=== PATIENT | female | born 1990 | race Hispanic/Latino ===

== ENCOUNTER 2020-01-10 12:54 | Emergency (ER) | payer MEDICAID, OTHER | END 2020-01-10 13:34 | disposition home or self-care (01) | LOC: EDH 12:54 | DX: R05 Cough (principal); Z98.890 Other specified postprocedural states | CPT/HCPCS: 99281 ==

== ENCOUNTER 2022-02-17 12:01 | Inpatient (IN) | payer MEDICAID, OTHER ==
[~2022-02-17] VITALS: Ht 157.5 cm; Wt 101.7 kg
[2022-02-17] MEDS ORDERED: 0.9%NACL 1000ML 1,000 ML IV SCH ×2 (12:30→15:00)
[2022-02-17] MEDS ORDERED: ONDANSETRON 4MG INJ IVP ONE (12:30)
[2022-02-17] MEDS ORDERED: KETOROLAC 30MG VIAL (30MG/ML) IVP ONE (12:30)
[2022-02-17 12:39] LABS: BASOPHILS % (AUTO) 0.2 % (0.0-5.0); EOSINOPHILS % (AUTO) 0.3 % (0.0-8.0); HEMATOCRIT 39.1 % (36-48); LYMPHOCYTES % (AUTO) 10.7 % (21.0-51.0); MEAN CORPUSCULAR HEMOGLOBIN 27.8 pg (27.0-33.0); MEAN CORPUSCULAR VOLUME 84.3 fL (79-99); MONOCYTES % (AUTO) 5.3 % (3.0-13.0); PLATELET COUNT (AUTO) 274 K/uL (130-400); RED BLOOD CELL COUNT(AUTO) 4.64 MIL/uL (4.00-5.50); RED CELL DISTRIBUTION WIDTH 12.7 % (11.0-15.5); WHITE BLOOD COUNT (AUTO) 12.7 K/uL (4.8-10.8)
[2022-02-17 12:44] LABS: APPEARANCE,URINE Clear (CLEAR); BILIRUBIN,URINE Negative (NEGATIVE); COLOR,URINE Yellow (YELLOW); GLUCOSE, URINE (UA) Negative (NEGATIVE); KETONES,URINE Trace mg/dL (NEGATIVE); LEUKOCYTE ESTERASE ,URINE Small (NEGATIVE); NITRATE,URINE Negative (NEGATIVE); OCCULT BLOOD,URINE Moderate (NEGATIVE); PROTEIN,URINE POS 1+ mg/dL (NEGATIVE)
[2022-02-17 12:46] LABS: HCG,QUAL RESULT NEGATIVE (NEGATIVE)
[2022-02-17 12:51] LABS: RBC,URINE 26-50 /HPF (0-1)
[2022-02-17 12:52] LABS: BACTERIA,URINE None Seen /HPF (None Seen); MUCUS,URINE Few LPF (None Seen)
[2022-02-17 12:53] LABS: RENAL EPITHELIAL CELLS,URINE Rare /HPF (None Seen)
[2022-02-17 12:57] LABS: POTASSIUM 3.9 mmol/L (3.5-5.1)
[2022-02-17 13:02] LABS: ALBUMIN 3.7 g/dL (3.5-5.0); BILIRUBIN,TOTAL 0.4 mg/dL (0.2-1.0); TOTAL PROTEIN, SERUM 7.4 g/dL (6.0-8.3)
[2022-02-17] MEDS ORDERED: MORPHINE 4 MG SYG ONE (13:29)
[2022-02-17] MEDS ORDERED: MORPHINE 4 MG SYG IVP ONE (13:30)
[2022-02-17] MEDS ORDERED: TAMSULOSIN HCL 0.4 MG CAP.ER.24H PO SCH (15:00)
[2022-02-17] MEDS ORDERED: CEFTRIAXONE 1G VIAL IVP ONE (15:00)
[2022-02-17] MEDS ORDERED: HYDROMORPHONE 1 MG INJ IVP PRN (16:30)
[2022-02-17] MEDS: CEFTRIAXONE 1G VIAL IV SCH (16:30)
[2022-02-17] MEDS ORDERED: LACTULOSE 20 GM/30 ML UDCUP PO PRN (16:30)
[2022-02-17] MEDS ORDERED: ACETAMINOPHEN 325 MG TAB PO PRN ×2 (16:30)
[2022-02-17] MEDS: 0.9%NACL 1000ML 1,000 ML IV SCH ×2 (17:03→23:53)
[2022-02-17] MEDS: HYDROMORPHONE 0.5 MG SYG (0.5MG/0.5ML) IVP PRN (17:26)
[2022-02-17] MEDS: FAMOTIDINE 20MG VIAL IV SCH (20:06)
[2022-02-17] MEDS: BISACODYL 5 MG TABLET.DR PO SCH (20:07)
[2022-02-17] MEDS ORDERED: FAMOTIDINE 20MG VIAL IV SCH (21:00)
[2022-02-18 00:05] VITALS: BP 101/62
[2022-02-18 04:00] VITALS: BP 112/76
[2022-02-18 08:00] VITALS: BP 91/52
[2022-02-18] MEDS ORDERED: ENOXAPARIN SODIUM 40 MG/0.4 ML SYRINGE SQ SCH (09:00)
[2022-02-18] MEDS: FAMOTIDINE 20MG VIAL IV SCH (09:08)
[2022-02-18] MEDS: BISACODYL 5 MG TABLET.DR PO SCH (09:08)
[2022-02-18] MEDS: HYDROMORPHONE 0.5 MG SYG (0.5MG/0.5ML) IVP PRN (11:00)
[2022-02-18 12:00] VITALS: BP 108/56
[2022-02-18] MEDS ORDERED: KETOROLAC 30MG VIAL (30MG/ML) IVP SCH (12:00)
[2022-02-18] MEDS: 0.9%NACL 1000ML 1,000 ML IV SCH (12:47)
[2022-02-18] MEDS ORDERED: KETO10 PO (15:13)
[2022-02-18] MEDS ORDERED: TAMS-1 PO (15:13)
[2022-02-18] MEDS ORDERED: SULF1TAB42 PO (15:13)
[2022-02-18] MEDS: CEFTRIAXONE 1G VIAL IV SCH (16:30)
[2022-02-19] MEDS ORDERED: TAMSULOSIN HCL 0.4 MG CAP.ER.24H PO SCH (09:00)
== END 2022-02-18 20:37 | disposition home or self-care (01) | DRG 690 ==
LOC: EDH 12:01 → EDHIP 16:16 → 3CH 02-18 00:02
PROVIDERS: ADMIT Internal Medicine; ATTEND Internal Medicine
DX: N13.6 Pyonephrosis (principal); Z68.41 Body mass index [BMI] 40.0-44.9, adult; Z20.822 Contact with and (suspected) exposure to COVID-19; Z87.891 Personal history of nicotine dependence; E66.01 Morbid (severe) obesity due to excess calories
CPT/HCPCS: 36415; 74176; 80053; 81001; 81025; 83605; 85025; 87635; G0378; J0696; J1170; J1650; J1885; J2270; J2405; J3490; J7030

== ENCOUNTER 2024-04-28 08:40 | Emergency (ER) | payer BC, OTHER ==
[~2024-04-28] VITALS: Ht 157.5 cm; Wt 104.3 kg
[~2024-04-28 08:40] MED LIST: KETO10 PO; SULF1TAB42 PO; TAMS-1 PO
[2024-04-28] MEDS: ONDANSETRON 4MG INJ IVP ONE (08:56)
[2024-04-28] MEDS: FAMOTIDINE 20MG VIAL IV ONE (08:56)
[2024-04-28] MEDS: 0.9%NACL 1000ML 1,000 ML IV ONE (08:56)
[2024-04-28 09:08] LABS: BASOPHILS # (AUTO) 0.02 K/uL (0.00-0.20); BASOPHILS % (AUTO) 0.4 % (0.0-5.0); HEMATOCRIT 32.1 % (36-48); IMMATURE GRANULOCYTE ABSOLUTE 0.04 K/uL (0-1); LYMPHOCYTES # (AUTO) 1.5 K/uL (1.0-4.8); LYMPHOCYTES % (AUTO) 27.5 % (21.0-51.0); MEAN CORPUSCULAR HEMOGLOBIN 28.5 pg (27.0-33.0); MEAN CORPUSCULAR HGB CONC 35.8 g/dL (32.0-36.0); MEAN CORPUSCULAR VOLUME 79.5 fL (79-99); MONOCYTES # (AUTO) 0.4 K/uL (0.1-1.0); MONOCYTES % (AUTO) 6.7 % (3.0-13.0); NEUTROPHILS # (AUTO) 3.6 K/uL (1.8-7.7); NEUTROPHILS % (AUTO) 64.7 % (40.0-77.0); PLATELET COUNT (AUTO) 106 K/uL (130-400); RED BLOOD CELL COUNT(AUTO) 4.04 MIL/uL (4.00-5.50); WHITE BLOOD COUNT (AUTO) 5.5 K/uL (4.8-10.8)
[2024-04-28 09:16] LABS: ALBUMIN 2.9 g/dL (3.5-5.0); CREATININE 0.9 mg/dL (0.5-1.0)
[2024-04-28 09:21] LABS: BILIRUBIN,TOTAL 0.8 mg/dL (0.2-1.0); TOTAL PROTEIN, SERUM 6.9 g/dL (6.0-8.3)
[2024-04-28 09:25] LABS: POTASSIUM 2.6 mmol/L (3.5-5.1)
[2024-04-28 09:27] LABS: APPEARANCE,URINE CLOUDY (CLEAR); BILIRUBIN,URINE NEGATIVE (NEGATIVE); COLOR,URINE YELLOW (YELLOW); GLUCOSE, URINE (UA) NEGATIVE (NEGATIVE); KETONES,URINE 10 mg/dL (NEGATIVE); LEUKOCYTE ESTERASE ,URINE 25 Leu/uL (NEGATIVE); NITRATE,URINE NEGATIVE (NEGATIVE); PROTEIN,URINE 30 mg/dL (NEGATIVE); UROBILINOGEN,URINE 0.2 mg/dL (0.2-1.0)
[2024-04-28 09:30] LABS: ADD UA MICROSCOPIC YES
[2024-04-28 09:32] LABS: BACTERIA,URINE FEW /HPF (None Seen); MUCUS,URINE RARE LPF (None Seen); SQUAMOUS EPITHELIAL CELL,UR FEW /HPF (0-2)
[2024-04-28] MEDS: POTASSIUM BICARB/CIT AC 25 MEQ TABLET.EFF PO ONE ×2 (09:33→10:53)
[2024-04-28] MEDS: POTASSIUM BICARB/CIT AC 25 MEQ TABLET.EFF ONE (09:33)
[2024-04-28] MEDS: CEFTRIAXONE 1G VIAL IVPB ONE (10:53)
[2024-04-28] MEDS: KETOROLAC 15MG/ML VIAL (15MG/ML) IV ONE (10:54)
[2024-04-28] MEDS ORDERED: MACR100 PO (11:56)
[2024-04-28] MEDS ORDERED: FAMO-136 PO (11:56)
[2024-04-28] MEDS ORDERED: ONDA-243 PO (11:56)
[2024-04-28 12:01] VITALS: BP 104/66; PULSE 88; RESP 14; O2SAT 97
== END 2024-04-28 12:02 | disposition home or self-care (01) ==
LOC: EDH 08:40
DX: E87.6 Hypokalemia (principal); N39.0 Urinary tract infection, site not specified; E66.9 Obesity, unspecified; Z68.41 Body mass index [BMI] 40.0-44.9, adult
CPT/HCPCS: 99284; 96365; 96375; 96361; 84132; 80053; 83690; 85025; 87086; 81001; 81025; 36415; J3490; J7030; J0696; J2405; J1885

== ENCOUNTER 2025-06-28 06:06 | Inpatient (IN) | payer SELFPAY ==
[~2025-06-28] VITALS: Ht 160 cm; Wt 99.8 kg
[~2025-06-28 06:06] MED LIST changes: +FAMO-136 PO; +MACR100 PO; +ONDA-243 PO; -TAMS-1 PO; +TAMS-55 PO
--- NOTE | 2025-06-28 06:41 | ERN ---
General Chief Complaint: Sepsis Stated Complaint: FACIAL SWELLING, TOOTHACHE Time Seen by MD: 06:36 Source: patient History of Present Illness Initial Comments 35-year-old female with a left upper dental abscess that has been getting worse and worse with increasing facial swelling and pain. Patient comes in febrile tachycardic with chest pain and difficulty breathing. Allergies: Coded Allergies: No Known Drug Allergies (Unverified Allergy, Unknown, 02/17/22) Home Meds Active Scripts Famotidine (Pepcid) 20 Mg Tablet, 20 MG PO DAILY for 7 Days, #7 TAB Prov:MARVIN CASTILLO 04/28/24 Ondansetron (Ondansetron Odt) 4 Mg Tab.rapdis, 4 MG PO BID for 7 Days, #14 TAB Prov:MARVIN CASTILLO 04/28/24 Nitrofurantoin/Nitrofuran Mac (Macrobid) 100 Mg Cap, 100 MG PO BID for 5 Days, #10 CAP Prov:MARVIN CASTILLO 04/28/24 Sulfamethoxazole/Trimethoprim (Bactrim Ds Tablet) 1 Each Tablet, 1 TAB PO BID for 7 Days, #14 TAB Prov:JEREMY BERNARDO Jr., MD 02/18/22 Ketorolac Tromethamine (Toradol) 10 Mg Tab, 10 MG PO Q6HPRN PRN for MODERATE PAIN (4-6) for 3 Days, #10 TAB 0 Refills Prov:JEREMY BERNARDO Jr., MD 02/18/22 Tamsulosin HCl (Flomax) 0.4 Mg Cap.er.24h, 0.4 MG PO DAILY for 30 Days, #30 CAPSULE.DR 0 Refills Prov:JEREMY BERNARDO Jr., MD 02/18/22 Past Medical History Past Medical History: Kidney Stone, Other Medical History Other: Obesity Past Surgical History: None Family History Family History: Negative Social History Social History: Negative Constitutional: (+) chills, (+) fever EENTM: (-) eye pain, (-) blurred vision, (-) tearing, (-) double vision, (-) ear pain, (-) ear discharge, (-) nose pain, (-) nose congestion, (-) throat pain, (-) Throat swelling, (-) mouth pain, (-) tooth pain, (-) mouth swelling, (-) other documentation Respiratory: (+) short of breath, (+) stridor Cardiovascular: (+) chest pain Gastrointestinal/Abdominal: (-) nausea, (-) vomiting, (-) diarrhea, (-) abdominal pain, (-) abdominal distention, (-) constipation, (-) rectal bleeding, (-) dark stool/melena, (-) other documentation Musculoskeletal: (-) Neck pain, (-) back pain, (-) Flank Pain, (-) joint pain, (-) joint swelling, (-) muscle pain, (-) muscle stiffness, (-) gout, (-) other documentation Physical Exam General Appearance: (+) moderate distress Orientation: (+) alert, (+) oriented x 3 Head/Face Trauma: No Face Comment Patient's left face is swollen and red and erythematous. Eye: bilateral eye normal inspection, bilateral eye PERRL, bilateral eye EOMI Ear, Nose, Throat: (+) hearing grossly normal, (+) normal ENT inspection, (+) moist mucous membraine Ear, Nose, Throat Comment Patient unable to open her mouth so it is very difficult to see the abscess but there does appear to be left upper molar cavity. Neck: (+) normal inspection, (+) full range of motion Respiratory: (+) chest non-tender, (+) lungs clear, (+) well ventilated Heart: (+) regular, (+) tachycardia Results Laboratory and Microbiology Lab and Micro Result MDM We will need to get a CT scan of her face to see if there is an abscess that can be drained. In the meantime I will give her pain medications and start some antibiotics. Admitting for rule out sepsis IV fluids and antibiotics given. Patient handed off at shift change with concern for dental infection and cellulitis, IV fluids and antibiotics given initially attempted to admit patient to the hospitalist service however they refused due to the fact of not having ENT coverage, patient does have signs of dental abscess, nothing obvious to drain, we tried arranging transfer for OMFS coverage however this would be outside of the [facility] area and patient refused transfer with like p.o. antibiotics and we will see a dentist tomorrow morning. ED Course DX & DISP Disposition: Discharge Departure Impression: Primary Impression: Urinary tract infection Additional Impression: Facial cellulitis Condition: Stable Scripts Clindamycin HCl (Clindamycin HCl) 300 Mg Capsule 1 CAP PO QID for 10 Days, #40 CAP 0 Refills Prov: TAMEKA SANCHEZ MD 06/28/25 Referrals: JOSE BUTLER (PCP) KELSEA OMER MD Jun 28, 2025 06:40 TAMEKA SANCHEZ MD Jun 28, 2025 11:25
[2025-06-28 06:44] LABS: IMMATURE GRANULOCYTE ABSOLUTE 0.08 K/uL (0-1); NUCLEATED RED BLOOD CELLS 0.0 % (0.0-0.19); PLATELET COUNT (AUTO) 290 K/uL (130-400); RED BLOOD CELL COUNT(AUTO) 4.88 MIL/uL (4.00-5.50); RED CELL DISTRIBUTION WIDTH 12.1 % (11.0-15.5); WHITE BLOOD COUNT (AUTO) 10.6 K/uL (4.8-10.8)
--- NOTE | 2025-06-28 06:54 | EKG ---
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
[2025-06-28] MEDS: CLINDAMYCIN IVPB 900MG/50ML IV ONE (06:59)
[2025-06-28] MEDS: LACTATED RINGERS 1000ML IV STA (06:59)
[2025-06-28] MEDS: LACTATED RINGERS 1000ML IV ONE (07:00)
--- NOTE | 2025-06-28 07:14 | NUR ---
PENDING GFR, TEST RESULTS, IV SITE, & CONSENT FOR CT EXAM.
[2025-06-28 07:20] LABS: APPEARANCE,URINE CLOUDY (CLEAR); GLUCOSE, URINE (UA) NEGATIVE (NEGATIVE); LEUKOCYTE ESTERASE ,URINE 250 Leu/uL (NEGATIVE); NITRATE,URINE NEGATIVE (NEGATIVE); OCCULT BLOOD,URINE SMALL (NEGATIVE)
[2025-06-28 07:22] LABS: ADD UA MICROSCOPIC YES
[2025-06-28 07:24] LABS: SQUAMOUS EPITHELIAL CELL,UR MOD /HPF (0-2)
[2025-06-28 07:30] LABS: CREATINE KINASE, TOTAL 48.0 U/L (21-232); CREATININE 0.7 mg/dL (0.5-1.0); GLOMERULAR FILTR. RATE CALC 115.0 mL/min (>90); GLUCOSE,RANDOM 115.0 mg/dL (70-105); SODIUM SERUM 133.0 mmol/L (136-145); UREA NITROGEN, BLOOD 8.0 mg/dL (7-18)
[2025-06-28] MEDS ORDERED: IOHEXOL-350 50ML VIAL IV ONE ×2 (07:40→07:53)
--- NOTE | 2025-06-28 07:47 | NUR ---
PT TAKEN TO CT AT THIS TIME.
--- NOTE | 2025-06-28 07:47 | NUR ---
You johansen in [facility] - 06/28/25 at 0747 by YINA PT TAKEN TO CT AT THIS TIME
--- NOTE | 2025-06-28 08:00 | NUR ---
PT RETURNED FROM CT.
--- NOTE | 2025-06-28 08:23 | HMCIMG ---
EXAM: CR Chest, 1 View. CLINICAL HISTORY: SEPSIS COMPARISON: None provided. FINDINGS: LUNGS: The lungs show no infiltrate or other acute finding. PLEURAL SPACES: No pleural effusion or pneumothorax. MEDIASTINUM: Cardiac size and mediastinal contours within normal limits. BONES: No acute osseous abnormality. IMPRESSION: No acute cardiopulmonary pathology is evident. /[place]
--- NOTE | 2025-06-28 09:27 | HMCIMG ---
EXAM: CT Maxillofacial with and without Intravenous Contrast. CLINICAL HISTORY: Dental abcess TECHNIQUE: Axial computed tomography images of the face with and without intravenous contrast. Sagittal and coronal reformatted images were generated. COMPARISON: None provided. FINDINGS: SOFT TISSUES: Ill-defined, enhancing focus measuring 2.4 x 1.5 cm (AP x TR) ,abutting the alveolar process of the left maxilla at the level of the left first molar tooth with significant adjacent fat stranding in the left buccal region. Minimal erosion of the underlying alveolar bone. Multiple subcentimetric and few enlarged enhancing lymph nodes in the bilateral level IB and bilateral level II lymph node stations, largest measuring 1.3 x 1.7 cm in the left level II lymph node station. SINUSES: Mucosal thickening in the bilateral maxillary and ethmoidal sinuses ORBITS: The orbits are normal. No retrobulbar hematoma or mass. IMPRESSION: Ill-defined enhancing focus with surrounding inflammatory changes in relation to the left maxillary first molar tooth.Findings are consistent with evolving odontogenic abscess with associated buccal cellulitis and minimal bone erosion of the adjacent maxilla. Multiple subcentimetric and few enlarged enhancing lymph nodes in the bilateral level IB and bilateral level II lymph node stations. /[place]
[2025-06-28] MEDS ORDERED: 0.9%NACL 1000ML 1,000 ML IV SCH (12:00)
[2025-06-28] MEDS ORDERED: CLINDAMYCIN IVPB 600MG/50ML 50 ML IV SCH (12:00)
[2025-06-28] MEDS ORDERED: LACTULOSE 20 GM/30 ML UDCUP PO PRN (12:00)
[2025-06-28] MEDS ORDERED: PoTASSium chloRIDE 20MEQ ER 20 MEQ ERTAB PO PRN (12:00)
[2025-06-28] MEDS ORDERED: MAGNESIUM 2GM PREMIX 50ML 50 ML IV PRN (12:00)
[2025-06-28] MEDS ORDERED: FAMOTIDINE 20MG VIAL IV PRN (12:00)
[2025-06-28] MEDS ORDERED: MAG/ALUM/SIMETH 30 ML UDCUP PO PRN (12:00)
[2025-06-28] MEDS ORDERED: GLUCAGON 1MG KIT 1 MG ML IM PRN (12:00)
[2025-06-28] MEDS ORDERED: PoTASSium chl 10% ELIXIR 20MEQ 20 MEQ/15 ML UDCUP PO PRN (12:00)
[2025-06-28] MEDS ORDERED: DEXTROSE 50%-WATER 50 ML DISP.SYRIN IV PRN (12:00)
[2025-06-28] MEDS ORDERED: NITROGLYCERIN 0.4 MG SL TAB SL PRN (12:00)
[2025-06-28] MEDS ORDERED: guaiFENesin-DM 200/20MG 10ML PO PRN (12:00)
--- NOTE | 2025-06-28 13:00 | NUR ---
TRANSFER REQUEST TO [facility] FOR ENT SERVICE PER DR SANCHEZ. IMAN GOMES
--- NOTE | 2025-06-28 13:00 | NUR ---
DR ADEN AND DR SANCHEZ SPOKE ABOUT THE PATIENTS PLAN OF CARE AND HAVE AGREED TO DC HER ADMISSION INTO THIS HOSPITAL AND PROCEED WITH THE TRANSFER TO [facility] DUE TO HIGHER LEVEL OF CARE/ NEEDING ENT.
--- NOTE | 2025-06-28 13:55 | NUR ---
TRANSFER CALL PLACED TO [facility] [place] TRAN[facility]ER [facility] SPOKE WITH [facility] INTAKE NURSE INFORMATION PROVIDED PT DECLINED NO SERVICE. PER NURSE ENT AND MAXILLOFACIAL ONLY ACCEPTS TRAUMA PTS . ER DOCTOR MADE AWARE. IMAN SALAS
--- NOTE | 2025-06-28 14:30 | NUR ---
TRANSFER MET WITH PT AND SPOUSE INFORM [facility] DECLINED AND WILL TRY OTHER FACILITIES INCLUDING [place] AND [facility] CONSENT SIGNED FOR TRANSFER. IMAN GOMES
--- NOTE | 2025-06-28 14:37 | NUR ---
PT STATES SHE WISHES TO BE DISCHARGED WITH ANTIBIOTICS DUE TO NOT BEING ABLE TO MAKE THE DRIVE TO [place]. DR. SANCHEZ AWARE.
--- NOTE | 2025-06-28 14:47 | NUR ---
TRANSFER CALL PLACED TO R SPOKE WITH MARIA INES REQUESTED INFORMATION TO BE FAX TO [phone], WHICH WAS DONE . IMAN GOMES
[2025-06-28] MEDS ORDERED: CLIN-141 PO (15:11)
[2025-06-28 15:17] VITALS: BP 132/84; PULSE 78; RESP 20; TEMP 99.1; O2SAT 97
--- NOTE | 2025-06-28 16:00 | NUR ---
TRANSFER CX PT WAS DISCHARGE . CALL PLACE TO [facility] SPOKE WITH MARIA INES AND TRANSFER CANCELLED . IMAN GOMES
[2025-06-28] MEDS ORDERED: FAMOTIDINE 20MG VIAL IV SCH (21:00)
== END 2025-06-28 15:30 | disposition home or self-care (01) | DRG 690 ==
LOC: EDH 06:06 → EDHIP 06:07
PROVIDERS: ADMIT Internal Medicine; ATTEND Internal Medicine
DX: N39.0 Urinary tract infection, site not specified (principal); E66.9 Obesity, unspecified; K04.7 Periapical abscess without sinus; Z87.442 Personal history of urinary calculi; Z68.39 Body mass index [BMI] 39.0-39.9, adult
CPT/HCPCS: 36415; 70488; 71045; 80048; 81001; 81025; 82550; 83605; 84484; 85025; 87040; 87086; 93005; G0378; J0696; J1885; J3490; J7120; Q9967